=== PATIENT | female | born 1935 | race Caucasian/White ===

== ENCOUNTER 2018-03-01 15:07 | Observation (INO) ==
[2018-03-01] MEDS ORDERED: Sodium Chlor 0.9% Inj 500 ML IV.SIG ONE (15:35)
--- NOTE | 2018-03-01 15:38 | ED ---
HPI General Chief complaint: Abdominal Pain Stated complaint: Weakness Time Seen by Provider: 03/01/18 15:17 Source: patient, EMS and RN notes reviewed Mode of arrival: EMS History of Present Illness HPI narrative: 82yF presenting with diarrhea and generalized weakness. The patient states that this morning she started having diffuse "cramping" abdominal pain which is constant and associated with 2 episodes of loose diarrhea. She called EMS because "I just didn't feel well" and reports generalized weakness and fatigue. Denies fever or chills, chest pain, palpitations, cough, dyspnea, nausea or vomiting, or black/ tarry/ bloody stools. No known history of arrhythmia. Related Data Home Medications Medication Instructions Recorded Confirmed atenolol 25 mg PO DAILY 03/01/18 03/01/18 atorvastatin 20 mg PO DAILY 03/01/18 03/01/18 lorazepam 0.5 mg PO PRN 03/01/18 03/01/18 Allergies Allergy/AdvReac Type Severity Reaction Status Date / Time No Known Allergies Allergy Unverified 03/01/18 15:25 Review of Systems ROS: all other systems reviewed are negative Constitutional Denies fever(s) Cardiovascular Denies chest pain Respiratory Denies cough Gastrointestinal Reports abdominal pain and Reports loose stools Genitourinary Denies dysuria Musculoskeletal Denies back pain Neurologic Denies confusion Psychiatric Denies confusion PMFSH History History Provided By: Patient Medical History Medical History Breast CA (Acute) HBP (high blood pressure) (Acute) High cholesterol (Acute) Surgical History Surgical History Hx of breast biopsy (Acute) Social History Social History Substance History: No History of Abuse Second Hand Smoke Exposure: No Smoking Status: Never smoker How Often Do You Have a Drink Containing Alcohol: Never Recent Travel in [facility] within the Last 8 Weeks: No Recent Out of Country Travel within the Last 8 Weeks: No Immunization History Tetanus Immunization: >5 Years Hx Influenza Vaccine This Season: Yes Exam Const General: healthy appearing and no acute distress HENMT Head: normocephalic and atraumatic Face and sinus: normal facial exam Eyes General: appearance normal, both eyes and all related structures Pupils: PERRL Chest Chest: normal inspection of the chest Resp Effort & Inspection: normal respiratory effort Auscultation: no rhonchi and no wheezes Cardio Other: Irregularly irregular GI Other: Soft, non-distended, minimal LLQ/ RLQ tenderness, no guarding or rebound Skin General: no rashes or lesions noted Neuro General: alert, awake, oriented x3 and no focal motor deficits Psych Affect: normal affect Course Initial Documented Vital Signs Temperature 97.7 F 03/01/18 15:26 Pulse Rate 78 03/01/18 15:26 Respiratory Rate 18 03/01/18 15:26 Blood Pressure 109/60 03/01/18 15:26 Pulse Oximetry 97 03/01/18 15:26 Last Documented Vital Signs Temperature 97.7 F 03/01/18 15:26 Pulse Rate 70 03/01/18 17:12 Respiratory Rate 17 03/01/18 17:12 Blood Pressure 111/63 03/01/18 17:12 Pulse Oximetry 99 03/01/18 17:[address] [facility] Narrative Medical decision making narrative: Assessment: 82yF presenting with new onset A fib, generalized weakness, and diarrhea Plan: EKG and monitor Labs, including trop, mag, TSH CXR CT abd/pelvis Addendum: Patient's workup shows minimally elevated T4, lytes normal, trop negative, CT scans show no acute pathology. This patient cannot go home as she has new-onset atrial fibrillation; she will need cardiac monitoring, further workup, and potentially anticoagulation. Case discussed with Dr. Carlson, who agrees with obs level of care. Differential Diagnosis Differential Diagnosis: Differential diagnosis includes, but is not limited to: atrial fibrillation, dehydration, electrolyte abnormality, thyroid disease, colitis, diverticulitis Medical Records Medical records reviewed: Yes I reviewed the patient's medical records. Lab Data Lab results reviewed: Yes I reviewed the patient's lab results. Result diagrams: 03/01/18 15:45 03/01/18 15:45 Lab Results 03/01/18 03/01/18 03/01/18 Range/Units 15:45 15:45 16:11 WBC 7.7 (4.0-11.0) th/mm3 RBC 3.97 L (4.00-5.30) mil/mm3 Hgb 12.0 (11.6-15.3) gm/dL Hct 36.2 (35.0-46.0) % MCV 91.3 (80.0-100.0) fL MCH 30.2 (27.0-34.0) pg MCHC 33.1 (32.0-36.0) % RDW 13.8 (11.6-17.2) % Plt Count 286 (150-450) th/mm3 MPV 8.1 (7.0-11.0) fL Neut % (Auto) 65.8 (16.0-70.0) % Lymph % (Auto) 22.7 (9.0-44.0) % Daniels % (Auto) 9.4 H (0.0-8.0) % Eos % (Auto) 1.6 (0.0-4.0) % Baso % (Auto) 0.5 (0.0-2.0) % Neut # (Auto) 5.1 (1.8-7.7) th/mm3 Lymph # (Auto) 1.8 (1.0-4.8) th/mm3 Daniels # (Auto) 0.7 (0.0-0.9) th/mm3 Eos # (Auto) 0.1 (0.0-0.4) th/mm3 Baso # (Auto) 0.0 (0.0-0.2) th/mm3 WBC Differential . Differential Comment Auto diff final PT (9.8-11.6) sec INR Ratio APTT (24.3-30.1) sec Sodium 144 (136-145) meq/L Potassium 4.0 (3.5-5.1) meq/L Chloride 110 H (98-107) meq/L Carbon Dioxide 24.9 (21.0-32.0) meq/L Anion Gap 9 (5-15) meq/L BUN 13 (7-18) mg/dL Creatinine 0.79 (0.50-1.00) mg/dL Estimated GFR 69 L (>89) mL/min Random Glucose 74 (74-106) mg/dL Calcium 8.4 L (8.5-10.1) mg/dL Magnesium 1.9 (1.5-2.5) mg/dL Total Bilirubin 0.5 (0.2-1.0) mg/dL AST 26 (15-37) U/L ALT 16 (10-53) U/L Alkaline Phosphatase 74 (45-117) U/L Troponin I Less than 0.02 L Less than 0.02 L (0.02-0.05) ng/mL Total Protein 6.6 (6.4-8.2) g/dL Albumin 3.0 L (3.4-5.0) g/dL Lipase 141 (73-393) U/L TSH 0.012 L (0.358-3.740) uIU/mL Free T4 1.53 H (0.76-1.46) ng/dL 03/01/18 03/01/18 Range/Units 16:11 16:20 WBC (4.0-11.0) th/mm3 RBC (4.00-5.30) mil/mm3 Hgb (11.6-15.3) gm/dL Hct (35.0-46.0) % MCV (80.0-100.0) fL MCH (27.0-34.0) pg MCHC (32.0-36.0) % RDW (11.6-17.2) % Plt Count (150-450) th/mm3 MPV (7.0-11.0) fL Neut % (Auto) (16.0-70.0) % Lymph % (Auto) (9.0-44.0) % Daniels % (Auto) (0.0-8.0) % Eos % (Auto) (0.0-4.0) % Baso % (Auto) (0.0-2.0) % Neut # (Auto) (1.8-7.7) th/mm3 Lymph # (Auto) (1.0-4.8) th/mm3 Daniels # (Auto) (0.0-0.9) th/mm3 Eos # (Auto) (0.0-0.4) th/mm3 Baso # (Auto) (0.0-0.2) th/mm3 WBC Differential Differential Comment PT 10.6 (9.8-11.6) sec INR 1.0 Ratio APTT 22.6 L (24.3-30.1) sec Sodium (136-145) meq/L Potassium (3.5-5.1) meq/L Chloride (98-107) meq/L Carbon Dioxide (21.0-32.0) meq/L Anion Gap (5-15) meq/L BUN (7-18) mg/dL Creatinine (0.50-1.00) mg/dL Estimated GFR (>89) mL/min Random Glucose (74-106) mg/dL Calcium (8.5-10.1) mg/dL Magnesium (1.5-2.5) mg/dL Total Bilirubin (0.2-1.0) mg/dL AST (15-37) U/L ALT (10-53) U/L Alkaline Phosphatase (45-117) U/L Troponin I (0.02-0.05) ng/mL Total Protein (6.4-8.2) g/dL Albumin (3.4-5.0) g/dL Lipase (73-393) U/L TSH (0.358-3.740) uIU/mL Free T4 Cancelled (0.76-1.46) ng/dL Imaging Data Attestation: I personally reviewed and interpreted this imaging study as follows : My impression: Airway midline. No focal infiltrates. No pneumothorax. No pleural effusion. Cardiac and mediastinal silhouettes within normal limits. Radiologist's impression: Abdomen/Pelvis CT 03/01/18 15:35 CONCLUSION: 1. No acute abnormality to explain the patient's pain. 2. 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 3. Diverticulosis of the duodenum and sigmoid colon without acute abnormality. 4. Long-term stable 2.9 cm left adnexal cystic lesion. Likely ovarian in origin. Chest X-Ray 03/01/18 15:35 CONCLUSION: 2 nodular areas of parenchymal consolidation involving the right lung. Consider CT the thorax to further assess. At this point infiltrates versus mass. Chest CT 03/01/18 16:28 CONCLUSION: 1. Distal airway disease and clustered nodularity in the right upper lobe posteriorly, probably chronic inflammatory changes. A focal area of atypical mycobacterial disease could give this appearance. There is also some nodularity and subsegmental airspace disease in the right middle lobe. 2. No effusions or adenopathy. 3. Moderate coronary calcifications. ECG Data Attestation: I personally reviewed and interpreted this ECG as follows: Interpretation: Rate: 60-150 BPM Rhythm: Atrial fibrillation Spring: Normal Intervals: Normal intervals, no blocks, QTc 400 ms Q waves: III T waves: Inverted in V2, V3 ST segments: No elevations or depressions Impression: Rate-controlled atrial fibrillation which is new when compared to EKG from 05/14/2014. Discharge Plan Physicians Team ED Provider: Radha Evans Primary Care Provider: Wang Mcclain Rxs /Orders / Referrals /Forms Prescriptions: No Action atorvastatin 10 mg Tablet 20 mg PO DAILY RF: 0 atenolol 25 mg Tablet 25 mg PO DAILY RF: 0 lorazepam 0.5 mg Tablet 0.5 mg PO PRN RF: 0 Status ED Status: With Doctor
[2018-03-01 15:57] LABS: Baso % (Auto) 0.5 % (0.0-2.0); Eos # (Auto) 0.1 th/mm3 (0.0-0.4); Eos % (Auto) 1.6 % (0.0-4.0); Hematocrit 36.2 % (35.0-46.0); Lymph # (Auto) 1.8 th/mm3 (1.0-4.8); Lymph % (Auto) 22.7 % (9.0-44.0); Mean Corpuscular HGB Conc 33.1 % (32.0-36.0); Mean Corpuscular Hemoglobin 30.2 pg (27.0-34.0); Mean Corpuscular Volume 91.3 fL (80.0-100.0); Mean Platelet Volume 8.1 fL (7.0-11.0); Mono # (Auto) 0.7 th/mm3 (0.0-0.9); Mono % (Auto) 9.4 % (0.0-8.0); Neut # (Auto) 5.1 th/mm3 (1.8-7.7); Neut % (Auto) 65.8 % (16.0-70.0); Platelet Count 286 th/mm3 (150-450); Red Blood Count 3.97 mil/mm3 (4.00-5.30); Red Cell Distribution Width 13.8 % (11.6-17.2); White Blood Count 7.7 th/mm3 (4.0-11.0)
--- NOTE | 2018-03-01 16:25 | XR ---
EXAM DATE: 03/01/2018 3:47 PM EDT AGE/SEX: 82 years / Female INDICATIONS: Lower chest pain. CLINICAL DATA: This is the patient's initial encounter. Patient reports that signs and symptoms have been present for 1 day and indicates a pain score of 1/10. MEDICAL/SURGICAL HISTORY: None. None. COMPARISON: [facility], CT CHEST W/O CONTRAST, 02/07/2016. . FINDINGS: A single AP view of the chest demonstrates 2 subtle areas of nodularity. One is within the medial rig ht base and the second laterally within the right midlung. The cardiomediastinal contours are unremar kable. Osseous structures are intact. CONCLUSION: 2 nodular areas of parenchymal consolidation involving the right lung. Consider CT the thorax to furt her assess. At this point infiltrates versus mass. Electronically signed by: Josiah Lopez MD 03/01/2018 4:23 PM EDT
[2018-03-01 16:36] LABS: Alanine Aminotransferase 16 U/L (10-53); Alkaline Phosphatase 74 U/L (45-117); Thyroid Stimulating Hormone 0.012 uIU/mL (0.358-3.740); Total Protein 6.6 g/dL (6.4-8.2)
[2018-03-01 16:39] LABS: Anion Gap 9 meq/L (5-15); Aspartate Aminotransferase 26 U/L (15-37); Blood Urea Nitrogen 13 mg/dL (7-18); Calcium 8.4 mg/dL (8.5-10.1); Carbon Dioxide 24.9 meq/L (21.0-32.0); Chloride 110 meq/L (98-107); Glomerular Filtration Rate 69 mL/min (>89); Glucose,Random 74 mg/dL (74-106); Lipase 141 U/L (73-393); Magnesium 1.9 mg/dL (1.5-2.5); Sodium 144 meq/L (136-145)
[2018-03-01 16:46] LABS: Activated Partial Thrombo Time 22.6 sec (24.3-30.1); Prothrombin Time 10.6 sec (9.8-11.6)
[2018-03-01 17:07] LABS: Free T4 (Free Thyroxine) 1.53 ng/dL (0.76-1.46)
--- NOTE | 2018-03-01 17:46 | CT ---
EXAM DATE: 03/01/2018 5:38 PM EDT AGE/SEX: 82 years / Female INDICATIONS: Abdominal pain, diarrhea. CLINICAL DATA: This is the patient's initial encounter. Patient reports that signs and symptoms have been present for 1 day and indicates a pain score of 3/10. MEDICAL/SURGICAL HISTORY: Hypertension. Breast cancer. None. ORAL CONTRAST: No oral contrast ingested. RADIATION DOSE: 6.00 CTDI (mGy) ; Combined studies COMPARISON: [facility], CT ABDOMEN AND PELVIS W AND W/O CONTRAST, 08/07/2015. . TECHNIQUE: Multiple contiguous axial images were obtained through the abdomen and pelvis following b olus infusion of 97 ml Omnipaque 350 (iohexol) nonionic water-soluble contrast as a cumulative dose for multiple exams. No oral contrast ingested. Using automated exposure control and adjustment of t he mA and/or kV according to patient size, radiation dose was kept as low as reasonably achievable to obtain optimal diagnostic quality images. DICOM format image data is available electronically for r eview and comparison. FINDINGS: Lower Lungs: See the CT of the thorax dictated separately.. Liver: The liver has a homogeneous density. Stable 9 mm low-density lesion involving the subcapsular aspects of segment 6. This is long-term stable and likely relates to a cyst or hemangioma. There is n o dilation of the biliary tree. Gallbladder is unremarkable. Spleen: Homogeneous density without enlargement. Pancreas: Unremarkable without mass or calcification. Kidneys: Normal in size and shape. No evidence of mass or hydronephrosis. Adrenal Glands: Unremarkable. Aorta: The aorta and proximal iliac vessels are grossly unremarkable without aneurysmal dilation. Bowel/Mesentery: 2 large duodenal diverticula are seen arising from the second and third portions of the duodenum. The largest arises from the third portion and measures 5 cm. These contain fluid. They are unchanged from the prior study. Scattered diverticula involving the sigmoid colon. No acute infla mmation. The bowel loops are grossly unremarkable. The cecum and sigmoid colon have a normal configur ation. Abdominal Wall: Intact. Retroperitoneum: No evidence of adenopathy in the retrocrural, para-aortic, or deep pelvic regions. Bladder: Contours are smooth. Reproductive Organs: There is a 2.9 cm cystic lesion within the lateral aspects the left hemipelvis. This is unchanged from the prior study. Uterus lies within the midline. No free fluid.. Inguinal: The inguinal region is unremarkable without evidence of adenopathy. Bony Structures: A scoliotic and degenerative spine. CONCLUSION: 1. No acute abnormality to explain the patient's pain. 2. 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 3. Diverticulosis of the duodenum and sigmoid colon without acute abnormality. 4. Long-term stable 2.9 cm left adnexal cystic lesion. Likely ovarian in origin. Electronically signed by: Josiah Lopez MD 03/01/2018 5:45 PM EDT
--- NOTE | 2018-03-01 17:49 | CT ---
EXAM DATE: 03/01/2018 5:38 PM EDT AGE/SEX: 82 years / Female INDICATIONS: Chest pain. CLINICAL DATA: This is the patient's initial encounter. Patient reports that signs and symptoms have been present for 1 day and indicates a pain score of 4/10. MEDICAL/SURGICAL HISTORY: Hypertension. Breast cancer. None. RADIATION DOSE: 6.00 CTDI (mGy) ; Combined studies COMPARISON: No prior exams available for comparison. TECHNIQUE: Multiple contiguous axial images were obtained through the chest during bolus infusion of 97 ml Omnipaque 350 (iohexol) nonionic water-soluble contrast as a cumulative dose for multiple exa ms. Images were obtained in suspended respiration using multiple row detector helical technique. U sing automated exposure control and adjustment of the mA and/or kV according to patient size, radiati on dose was kept as low as reasonably achievable to obtain optimal diagnostic quality images. DICOM format image data is available electronically for review and comparison. FINDINGS: There is some distal airway disease in cluster nodularity posterior segment of the right upper lobe w hich is probably inflammatory or post minimal subsegmental consolidation in the right middle lobe and dependent opacity in both lungs. There is no pleural or pericardial effusion. There are moderate coronary artery calcifications. No acute findings in the upper abdomen. Diffuse fatty liver. Small hepatic cyst. Spleen, adrenals, ki dneys and pancreas unremarkable. No calcified gallstones. Degenerative changes in the spine. CONCLUSION: 1. 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 A focal area of atypical mycobacterial disease could give this appearance. There is also some nodularity and subsegmental airspace disease in the right middle lobe. 2. No effusions or adenopathy. 3. Moderate coronary calcifications. Electronically signed by: Jones Schuler MD 03/01/2018 5:48 PM EDT
[2018-03-01] MEDS ORDERED: ALPRAZolam 0.25 MG Tablet PO ONE (18:26)
--- NOTE | 2018-03-01 21:17 | P.HP ---
History of Present Illness Service: [facility] adult med Primary Care Physician: Wang Mcclain MD Chief Complaint: diarrhea, weakness History of Present Illness: 82 y.o. WF with hx of HTN, hypercholesterolemia presents with diarrhea and generalized weakness. The patient states that this morning she started having diffuse "cramping" abdominal pain which is constant and associated with 2 episodes of loose diarrhea. She called EMS because "I just didn't feel well" and reports generalized weakness and fatigue. She reports that she generally feels quite well and stays active so today's weakness was unusual for her. Denies fever or chills, chest pain, palpitations, cough, dyspnea, nausea or vomiting, or black/ tarry/ bloody stools. No known history of arrhythmia. 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 Her diarrhea has resolved and she feels better presently although still somewhat weak. On ER evaluation she was noted to have slightly suppressed TSH and atrial fibrillation with controlled rate. - Diagnosis (1) Atrial fibrillation, new onset (2) HTN (hypertension) (3) Hypothyroidism (4) Hyperlipidemia Review of Systems Constitutional: Reports fatigue, Reports lack of energy, Reports weakness Ears, Nose, Mouth, and Throat: Denies abnormal hearing, Denies bleeding gums, Denies bad breath, Denies change in voice, Denies dental pain, Denies difficulty swallowing, Denies dizziness, Denies dry mouth, Denies ear discharge , Denies ear pain, Denies facial pain, Denies headache(s), Denies hearing loss, Denies hoarseness, Denies lip swelling, Denies nosebleed, Denies mouth lesions, Denies mouth pain, Denies nasal congestion, Denies nasal discharge, Denies nasal obstruction, Denies nasal trauma, Denies neck lump, Denies neck pain, Denies nose pain, Denies pain with swallowing, Denies poor balance, Denies post nasal drip, Denies ringing in the ears, Denies sinus pain, Denies sinus pressure , Denies sore throat, Denies throat swelling, Denies tongue swelling, Denies other Cardiovascular: Denies chest pain, Denies chest pain at rest, Denies chest pain with activity, Denies fainting, Denies fast heart rate, Denies foot swelling, Denies generalized swelling, Denies irregular heart rhythm, Denies leg pain with activity, Denies leg sores, Denies leg swelling, Denies lightheadedness, Denies radiating jaw, neck or arm pain, Denies rapid, pounding, or irregular heartbeat, Denies shortness of breath, Denies shortness of breath with activity , Denies shortness of breath when lying down, Denies shortness of breath causing sudden awakening, Denies slow heart rate, Denies other Respiratory: Denies change in phlegm color, Denies chest congestion, Denies cough, Denies coughing up blood, Denies excessive phlegm production, Denies pain on inspiration, Denies pain with cough, Denies shortness of breath, Denies shortness of breath with activity, Denies snoring, Denies stridor, Denies wheezing, Denies other Gastrointestinal: Reports abdominal pain, Reports change in bowel habits, Reports loose stools, Denies belching, Denies black, tarry stools, Denies bloating, Denies bright, red blood in stools, Denies constant urge to pass stool , Denies change in stools, Denies coffee ground vomit, Denies constipation, Denies cramping, Denies difficulty swallowing, Denies excessive passing of gas, Denies feeling full early, Denies heartburn, Denies incontinent of stools, Denies nausea, Denies pain with swallowing, Denies vomiting, Denies vomiting blood, Denies other Musculoskeletal: Reports muscle weakness Neurologic: Reports confusion, Reports weakness Psychiatric: Reports anxiety PMFSH - History History Provided By: Patient - Medical History Medical History: Medical History (Last Updated 03/01/18 @ 21:09 by Deuce Carlson MD, PhD) High cholesterol (Acute) HBP (high blood pressure) (Acute) Breast CA CKD (chronic kidney disease) stage 3, GFR 30-59 ml/min Lumbar degenerative disc disease Major depression - Surgical History Surgical History: Surgical History (Last Updated 03/01/18 @ 21:10 by Deuce Carlson MD, PhD) H/O mastectomy Hx of breast biopsy - Tobacco History Second Hand Smoke Exposure: No Smoking Status: Former smoker Years Smoked: 5 Number of Pack Years (if former smoker): 3 - Alcohol History How Often Do You Have a Drink Containing Alcohol: Never - Substance Use History Substance History: No History of Abuse - Travel History Recent Travel in the [place] Within the Last 8 Weeks: No Recent Travel Out of the Country Within the Last 8 Weeks: No - Immunization History Tetanus Immunization: >5 Years Hx Influenza Vaccine This Season: Yes Medications and Allergies Active Medications: Active Medications Apixaban (Eliquis) 2.5 mg PO BID [facility] Sodium Chloride (Ns Flush) 2 ml IV.FLUSH UNSCH PRN PRN Reason: FLUSH AFTER USING IV ACCESS Last Admin: 03/01/18 15:47 Dose: 2 ml Sodium Chloride (Ns Flush) 2 ml IV.FLUSH PRN PRN PRN Reason: FLUSH AFTER USING IV ACCESS Sodium Chloride (Ns Flush) 2 ml IV.FLUSH BID [facility]ANO Allergies Allergy/AdvReac Type Severity Reaction Status Date / Time No Known Allergies Allergy Unverified 03/01/18 15:25 Home Medications Medication Instructions Recorded Confirmed Type aspirin [Adult Low Dose Aspirin] 81 mg PO DAILY 03/01/18 03/01/18 History atenolol 25 mg PO DAILY 03/01/18 03/01/18 History atorvastatin 20 mg PO DAILY 03/01/18 03/01/18 History donepezil 5 mg PO DAILY 03/01/18 03/01/18 History hydrocodone-acetaminophen 1 tab PO Q8HR PRN 03/01/18 03/01/18 History levothyroxine 75 mcg PO DAILY 03/01/18 03/01/18 History lorazepam 0.5 mg PO PRN 03/01/18 03/01/18 History mirtazapine 15 mg PO HS 03/01/18 03/01/18 History omeprazole magnesium [Acid Studio Technician Video Operator 20 mg PO DAILY 03/01/18 03/01/18 History (omeprazole)] Exam Vital signs: Vital Signs 03/01/18 15:26 03/01/18 15:35 03/01/18 17:12 Temperature 97.7 F Pulse Rate 78 78 70 Respiratory Rate 18 17 Blood Pressure 109/60 111/63 Pulse Oximetry 97 98 99 03/01/18 19:35 Temperature Pulse Rate 75 Respiratory Rate 20 Blood Pressure 144/63 H Pulse Oximetry 100 Intake & Output 03/01/18 03/01/18 03/02/18 06:59 18:59 06:59 Intake Total 500 / 500 Balance 500 / 500 Weight 50.802 kg Intake: IV 500 / 500 NS Inj 500 ML @ Wide Open IV. 500 / 500 SIG BOLUS ONE Rx#:[id number] Narrative: GENERAL: elderly, NAD, slight confusion re: which hospital, but o/w a/o x3 SKIN: Warm and dry. few purpuric lesions on forearms HEAD: Atraumatic. Normocephalic. EYES: Pupils equal and round. No scleral icterus. No injection or drainage. ENT: No nasal bleeding or discharge. Mucous membranes pink and moist. NECK: Trachea midline. No JVD. CARDIOVASCULAR: irreg, irreg rate in 80s, no significant murmur or rub RESPIRATORY: No accessory muscle use. Clear to auscultation. Breath sounds equal bilaterally. GASTROINTESTINAL: Abdomen soft, nondistended, mild ttp in lower abd, but no g/ r. Hepatic and splenic margins not palpable. MUSCULOSKELETAL: Extremities without clubbing, cyanosis, or edema. No obvious deformities. NEUROLOGICAL: Awake and alert. No obvious cranial nerve deficits. Motor grossly within normal limits. Five out of 5 muscle strength in the arms and legs. Normal speech. PSYCHIATRIC: Appropriate mood and affect; insight and judgment normal. Results - Labs CBC & Chem 7: 03/01/18 15:45 03/01/18 15:45 Labs: Laboratory Results - last 24 hr 03/01/18 03/01/18 03/01/18 15:45 15:45 16:11 WBC 7.7 RBC 3.97 L Hgb 12.0 Hct 36.2 MCV 91.3 MCH 30.2 MCHC 33.1 RDW 13.8 Plt Count 286 MPV 8.1 Neut % (Auto) 65.8 Lymph % (Auto) 22.7 [place] % (Auto) 9.4 H Eos % (Auto) 1.6 Baso % (Auto) 0.5 Neut # (Auto) 5.1 Lymph # (Auto) 1.8 [place] # (Auto) 0.7 Eos # (Auto) 0.1 Baso # (Auto) 0.0 WBC Differential . Differential Comment Auto diff final PT INR APTT Sodium 144 Potassium 4.0 Chloride 110 H Carbon Dioxide 24.9 Anion Gap 9 BUN 13 Creatinine 0.79 Estimated GFR 69 L Random Glucose 74 Calcium 8.4 L Magnesium 1.9 Total Bilirubin 0.5 AST 26 ALT 16 Alkaline Phosphatase 74 Troponin I Less than 0.02 L Less than 0.02 L Total Protein 6.6 Albumin 3.0 L Lipase 141 TSH 0.012 L Free T4 1.53 H 03/01/18 03/01/18 16:11 16:20 WBC RBC Hgb Hct MCV MCH MCHC RDW Plt Count MPV Neut % (Auto) Lymph % (Auto) [place] % (Auto) Eos % (Auto) Baso % (Auto) Neut # (Auto) Lymph # (Auto) [place] # (Auto) Eos # (Auto) Baso # (Auto) WBC Differential Differential Comment PT 10.6 INR 1.0 APTT 22.6 L Sodium Potassium Chloride Carbon Dioxide Anion Gap BUN Creatinine Estimated GFR Random Glucose Calcium Magnesium Total Bilirubin AST ALT Alkaline Phosphatase Troponin I Total Protein Albumin Lipase TSH Free T4 Cancelled - Imaging Impressions Abdomen/Pelvis CT 03/01/18 15:35 CONCLUSION: 1. No acute abnormality to explain the patient's pain. 2. 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 3. Diverticulosis of the duodenum and sigmoid colon without acute abnormality. 4. Long-term stable 2.9 cm left adnexal cystic lesion. Likely ovarian in origin. Chest X-Ray 03/01/18 15:35 CONCLUSION: 2 nodular areas of parenchymal consolidation involving the right lung. Consider CT the thorax to further assess. At this point infiltrates versus mass. Chest CT 03/01/18 16:28 CONCLUSION: 1. Distal airway disease and clustered nodularity in the right upper lobe posteriorly, probably chronic inflammatory changes. A focal area of atypical mycobacterial disease could give this appearance. There is also some nodularity and subsegmental airspace disease in the right middle lobe. 2. No effusions or adenopathy. 3. Moderate coronary calcifications. Caprini VTE Risk Assessment Caprini VTE Risk Assessment: Moderate/High Risk (score >= 2) Caprini Risk Assessment Model: Point Value = 1 Point Value = 2 Point Value = 3 Point Value = 5 Age 41-60 Minor surgery BMI > 25 kg/m2 Swollen legs Varicose veins or History of unexplained or recurrent spontaneous Oral contraceptives or hormone replacement Sepsis (< 1 month) Serious lung disease, including pneumonia (< 1 month) Abnormal pulmonary function Acute myocardial infarction Congestive heart failure (< 1 month) History of inflammatory bowel disease Medical patient at bed rest Age 61-74 Arthroscopic surgery Major open surgery (> 45 min) Laparoscopic surgery (> 45 min) Malignancy Confined to bed (> 72 hours) Immobilizing plaster cast Central venous access Age >= 75 History of VTE Family history of VTE Factor V Leiden Prothrombin [id number] Lupus anticoagulant Anticardiolipin antibodies Elevated serum homocysteine Heparin-induced thrombocytopenia Other congenital or acquired thrombophilia Stroke (< 1 month) Elective arthroplasty Hip, pelvis, or leg fracture Acute spinal cord injury (< 1 month) Prophylaxis Regimen: Total Risk Factor Score Risk Level Prophylaxis Regimen 0-1 Low Early ambulation 2 Moderate Order ONE of the following: *Sequential Compression Device (SCD) *Heparin 5000 units SQ BID 3-4 Higher Order ONE of the following medications: *Heparin 5000 units SQ TID *Enoxaparin/Lovenox 40 mg SQ daily (WT < 150 kg, CrCl > 30 mL/min) *Enoxaparin/Lovenox 30 mg SQ daily (WT < 150 kg, CrCl > 10-29 mL/min) *Enoxaparin/Lovenox 30 mg SQ BID (WT < 150 kg, CrCl > 30 mL/min) AND/OR *Sequential Compression Device (SCD) 5 or more Highest Order ONE of the following medications: *Heparin 5000 units SQ TID (Preferred with Epidurals) *Enoxaparin/Lovenox 40 mg SQ daily (WT < 150 kg, CrCl > 30 mL/min) *Enoxaparin/Lovenox 30 mg SQ daily (WT < 150 kg, CrCl > 10-29 mL/min) *Enoxaparin/Lovenox 30 mg SQ BID (WT < 150 kg, CrCl > 30 mL/min) AND *Sequential Compression Device (SCD) Assessment and Plan - Assessment (1) Atrial fibrillation, new onset Code(s): I48.91 - Unspecified atrial fibrillation Status: Acute Plan: TSH noted. Will decrease levothyroxine, but doubt significant contribution. lytes ok. r/o ischemia, check echo. Start eliquis as CHADS-Vasc2 >2 (2) HTN (hypertension) Code(s): I10 - Essential (primary) hypertension Status: Chronic Plan: chronic. continue meds. Atenolol helps with rate control. (3) Hypothyroidism Code(s): E03.9 - Hypothyroidism, unspecified Status: Chronic Plan: decrease levothyroxine (4) Hyperlipidemia Code(s): E78.5 - Hyperlipidemia, unspecified Status: Chronic Plan: continue rx (2) HTN (hypertension) Qualifiers: Hypertension type: essential hypertension Qualified Code(s): I10 - Essential (primary) hypertension
[2018-03-01] MEDS: LORazepam 0.5 MG Tablet PO PRN (23:06)
[2018-03-01 23:32] LABS: Creatine Kinase 51 U/L (26-192)
[2018-03-02] MEDS ORDERED: Levothyroxine 50 MCG Tablet PO SCH (06:00)
[2018-03-02 07:22] LABS: Creatine Kinase 126 U/L (26-192)
--- NOTE | 2018-03-02 07:42 | P.CONCA ---
<Robb Harry - Last Filed: 03/02/18 07:34> History of Present Illness Primary Care Provider: Wang Mcclain MD Family Provider: Wang Mcclain MD Chief Complaint: diarrhea, weakness History of Present Illness: 82-year-old female with past medical history of HTN, hypothyroidism who presented with abdominal cramping and weakness. The patient has been having lower abdominal discomfort and diarrhea for the past few days which has improved. She is found to have new onset atrial fibrillation yesterday. Heart rate appears mostly controlled overnight. She has been started on Eliquis by the primary team. She denies any recent chest pain, shortness breath, palpitations. She denies any prior history of heart disease or stroke. Review of Systems All other systems reviewed negative except as [facility] - History History Provided By: Patient - Medical History Medical History: Medical History (Last Updated 03/01/18 @ 21:09 by Deuce Carlson MD, PhD) High cholesterol (Acute) HBP (high blood pressure) (Acute) Breast CA CKD (chronic kidney disease) stage 3, GFR 30-59 ml/min Lumbar degenerative disc disease Major depression - Surgical History Surgical History: Surgical History (Last Updated 03/01/18 @ 21:10 by Deuce Carlson MD, PhD) H/O mastectomy Hx of breast biopsy - Tobacco History Second Hand Smoke Exposure: No Tobacco Use In Past 30 Days: No Smoking Status: Former smoker Tobacco Type: Cigarettes Years Smoked: 5 Number of Pack Years (if former smoker): 3 - Alcohol History How Often Do You Have a Drink Containing Alcohol: Monthly or less - Substance Use History Substance History: No History of Abuse - Travel History Recent Travel in the [place] Within the Last 8 Weeks: No Recent Travel Out of the Country Within the Last 8 Weeks: No - Immunization History Tetanus Immunization: >5 Years Hx Influenza Vaccine This Season: Yes Medications and Allergies Allergies Allergy/AdvReac Type Severity Reaction Status Date / Time No Known Allergies Allergy Unverified 03/01/18 15:25 Home Medications Medication Instructions Recorded Confirmed Type aspirin [Adult Low Dose Aspirin] 81 mg PO DAILY 03/01/18 03/01/18 History atenolol 25 mg PO DAILY 03/01/18 03/01/18 History atorvastatin 20 mg PO DAILY 03/01/18 03/01/18 History donepezil 5 mg PO DAILY 03/01/18 03/01/18 History hydrocodone-acetaminophen 1 tab PO Q8HR PRN 03/01/18 03/01/18 History levothyroxine 75 mcg PO DAILY 03/01/18 03/01/18 History lorazepam 0.5 mg PO PRN 03/01/18 03/01/18 History mirtazapine 15 mg PO HS 03/01/18 03/01/18 History omeprazole magnesium [Acid Ethylbenzene Converter Helper 20 mg PO DAILY 03/01/18 03/01/18 History (omeprazole)] Active Medications: Active Medications Apixaban (Eliquis) 2.5 mg PO BID [facility] Last Admin: 03/01/18 23:01 Dose: 2.5 mg Atorvastatin Calcium (Lipitor) 10 mg PO DAILY [facility] Levothyroxine Sodium (Synthroid) 50 mcg PO DAILY@0600 [facility] Last Admin: 03/02/18 05:54 Dose: 50 mcg Lorazepam (Ativan) 0.5 mg PO Q8H PRN PRN Reason: ANXIETY Last Admin: 03/01/18 23:06 Dose: 0.5 mg Metoprolol Tartrate (Lopressor) 25 mg PO BID [facility] Pantoprazole Sodium (Protonix) 40 mg PO DAILY [facility] Sodium Chloride (Ns Flush) 2 ml IV.FLUSH UNSCH PRN PRN Reason: FLUSH AFTER USING IV ACCESS Sodium Chloride (Ns Flush) 2 ml IV.FLUSH BID [facility] Last Admin: 03/01/18 23:00 Dose: 2 ml Exam Vital signs: Vital Signs 03/01/18 15:26 03/01/18 15:35 03/01/18 17:12 Temperature 97.7 F Pulse Rate 78 78 70 Respiratory Rate 18 17 Blood Pressure 109/60 111/63 Pulse Oximetry 97 98 99 03/01/18 19:35 03/01/18 20:00 03/02/18 00:00 Temperature 98.4 F 98.2 F Pulse Rate 75 76 69 Respiratory Rate 20 17 17 Blood Pressure 144/63 H 130/94 H 125/61 Pulse Oximetry 100 94 L 97 03/02/18 03:20 03/02/18 04:00 Temperature 98.1 F Pulse Rate 74 Respiratory Rate 18 17 Blood Pressure 123/70 Pulse Oximetry 93 L Intake & Output 03/01/18 03/02/18 03/02/18 18:59 06:59 18:59 Intake Total 500 / 500 Balance 500 / 500 Weight 112 lb 108 lb 7.479 oz Intake: IV 500 / 500 NS Inj 500 ML @ Wide Open IV. 500 / 500 SIG BOLUS ONE Rx#:[id number] Other: # Voids 3 Date of Last Bowel Movement 03/01/18 Narrative: GENERAL: Well-developed well-nourished. In no acute distress. NECK: No carotid bruits. No JVD. CARDIOVASCULAR: Irregular rate and rhythm. No murmur appreciated. RESPIRATORY: No accessory muscle use. Clear to auscultation. Breath sounds equal bilaterally. MUSCULOSKELETAL: No clubbing or cyanosis. No edema. NEUROLOGICAL: Awake and alert. Normal speech. Results 03/01/18 15:45 03/01/18 15:45 Cardiac Enzymes 03/01/18 03/01/18 03/01/18 Range/Units 15:45 16:11 22:34 AST 26 (15-37) U/L Troponin I Less than 0.02 L Less than 0.02 L Less than 0.02 L (0.02-0.05) ng/mL 03/02/18 Range/Units 06:05 AST (15-37) U/L Troponin I Less than 0.02 L (0.02-0.05) ng/mL Coagulation 03/01/18 Range/Units 16:20 PT 10.6 (9.8-11.6) sec APTT 22.6 L (24.3-30.1) sec CBC 03/01/18 Range/Units 15:45 WBC 7.7 (4.0-11.0) th/mm3 RBC 3.97 L (4.00-5.30) mil/mm3 Hgb 12.0 (11.6-15.3) gm/dL Hct 36.2 (35.0-46.0) % Plt Count 286 (150-450) th/mm3 Neut # (Auto) 5.1 (1.8-7.7) th/mm3 Lymph # (Auto) 1.8 (1.0-4.8) th/mm3 [place] # (Auto) 0.7 (0.0-0.9) th/mm3 Eos # (Auto) 0.1 (0.0-0.4) th/mm3 Baso # (Auto) 0.0 (0.0-0.2) th/mm3 Comprehensive Metabolic Panel 03/01/18 Range/Units 15:45 Sodium 144 (136-145) meq/L Potassium 4.0 (3.5-5.1) meq/L Chloride 110 H (98-107) meq/L Carbon Dioxide 24.9 (21.0-32.0) meq/L BUN 13 (7-18) mg/dL Creatinine 0.79 (0.50-1.00) mg/dL Calcium 8.4 L (8.5-10.1) mg/dL AST 26 (15-37) U/L ALT 16 (10-53) U/L Alkaline Phosphatase 74 (45-117) U/L Total Protein 6.6 (6.4-8.2) g/dL Albumin 3.0 L (3.4-5.0) g/dL Intake and Output 03/01/18 03/02/18 03/02/18 22:59 06:59 14:59 Intake Total 500 / 500 Balance 500 / 500 Intake: IV 500 / 500 NS Inj 500 ML @ Wide Open IV. 500 / 500 SIG BOLUS ONE Rx#:[id number] Other: # Voids 3 Date of Last Bowel Movement 03/01/18 Weight 112 lb 108 lb 7.479 oz Assessment and Plan - Plan 82-year-old female with past medical history of HTN, hypothyroidism who presented with abdominal cramping and weakness. The patient has been having lower abdominal discomfort and diarrhea for the past few days which has improved. She is found to have new onset atrial fibrillation. New onset atrial fibrillation: Change atenolol to metoprolol 25 mg for rate control, titrate up if needed. Chadsvasc 4 for age, hypertension, gender, patient started on Eliquis by primary team, discussed risks/benefits of anticoagulation and patient is agreeable. Echocardiogram ordered. Discharge planning from a cardiology perspective. Discussed Condition With: Patient, Dr. Anderson <Francis Anderson - Last Filed: 03/02/18 08:35> History of Present Illness Primary Care Provider: Wang Mcclain MD Family Provider: Wang Mcclain MD [facility] - Medical History Medical History: Medical History (Last Updated 03/01/18 @ 21:09 by Deuce Carlson MD, PhD) High cholesterol (Acute) HBP (high blood pressure) (Acute) Breast CA CKD (chronic kidney disease) stage 3, GFR 30-59 ml/min Lumbar degenerative disc disease Major depression - Surgical History Surgical History: Surgical History (Last Updated 03/01/18 @ 21:10 by Deuce Carlson MD, PhD) H/O mastectomy Hx of breast biopsy Medications and Allergies Active Medications: Active Medications Apixaban (Eliquis) 2.5 mg PO BID [facility] Last Admin: 03/01/18 23:01 Dose: 2.5 mg Atorvastatin Calcium (Lipitor) 10 mg PO DAILY [facility] Levothyroxine Sodium (Synthroid) 50 mcg PO DAILY@0600 [facility] Last Admin: 03/02/18 05:54 Dose: 50 mcg Lorazepam (Ativan) 0.5 mg PO Q8H PRN PRN Reason: ANXIETY Last Admin: 03/01/18 23:06 Dose: 0.5 mg Metoprolol Tartrate (Lopressor) 25 mg PO BID [facility] Pantoprazole Sodium (Protonix) 40 mg PO DAILY [facility] Sodium Chloride (Ns Flush) 2 ml IV.FLUSH UNSCH PRN PRN Reason: FLUSH AFTER USING IV ACCESS Sodium Chloride (Ns Flush) 2 ml IV.FLUSH BID [facility] Last Admin: 03/01/18 23:00 Dose: 2 ml Exam Vital signs: Vital Signs 03/01/18 15:26 03/01/18 15:35 03/01/18 17:12 Temperature 97.7 F Pulse Rate 78 78 70 Respiratory Rate 18 17 Blood Pressure 109/60 111/63 Pulse Oximetry 97 98 99 03/01/18 19:35 03/01/18 20:00 03/02/18 00:00 Temperature 98.4 F 98.2 F Pulse Rate 75 76 69 Respiratory Rate 20 17 17 Blood Pressure 144/63 H 130/94 H 125/61 Pulse Oximetry 100 94 L 97 03/02/18 03:20 03/02/18 04:00 03/02/18 07:49 Temperature 98.1 F 97.5 F L Pulse Rate 74 73 Respiratory Rate 18 17 18 Blood Pressure 123/70 121/58 L Pulse Oximetry 93 L 96 Intake & Output 03/01/18 03/02/18 03/02/18 18:59 06:59 18:59 Intake Total 500 / 500 Balance 500 / 500 Weight 50.802 kg 49.2 kg Intake: IV 500 / 500 NS Inj 500 ML @ Wide Open IV. 500 / 500 SIG BOLUS ONE Rx#:[id number] Other: # Voids 3 Date of Last Bowel Movement 03/01/18 Results 03/01/18 15:45 03/01/18 15:45 Cardiac Enzymes 03/01/18 03/01/18 03/01/18 Range/Units 15:45 16:11 22:34 AST 26 (15-37) U/L Troponin I Less than 0.02 L Less than 0.02 L Less than 0.02 L (0.02-0.05) ng/mL 03/02/18 Range/Units 06:05 AST (15-37) U/L Troponin I Less than 0.02 L (0.02-0.05) ng/mL Coagulation 03/01/18 Range/Units 16:20 PT 10.6 (9.8-11.6) sec APTT 22.6 L (24.3-30.1) sec CBC 03/01/18 Range/Units 15:45 WBC 7.7 (4.0-11.0) th/mm3 RBC 3.97 L (4.00-5.30) mil/mm3 Hgb 12.0 (11.6-15.3) gm/dL Hct 36.2 (35.0-46.0) % Plt Count 286 (150-450) th/mm3 Neut # (Auto) 5.1 (1.8-7.7) th/mm3 Lymph # (Auto) 1.8 (1.0-4.8) th/mm3 [place] # (Auto) 0.7 (0.0-0.9) th/mm3 Eos # (Auto) 0.1 (0.0-0.4) th/mm3 Baso # (Auto) 0.0 (0.0-0.2) th/mm3 Comprehensive Metabolic Panel 03/01/18 Range/Units 15:45 Sodium 144 (136-145) meq/L Potassium 4.0 (3.5-5.1) meq/L Chloride 110 H (98-107) meq/L Carbon Dioxide 24.9 (21.0-32.0) meq/L BUN 13 (7-18) mg/dL Creatinine 0.79 (0.50-1.00) mg/dL Calcium 8.4 L (8.5-10.1) mg/dL AST 26 (15-37) U/L ALT 16 (10-53) U/L Alkaline Phosphatase 74 (45-117) U/L Total Protein 6.6 (6.4-8.2) g/dL Albumin 3.0 L (3.4-5.0) g/dL Intake and Output 03/01/18 03/02/18 03/02/18 22:59 06:59 14:59 Intake Total 500 / 500 Balance 500 / 500 Intake: IV 500 / 500 NS Inj 500 ML @ Wide Open IV. 500 / 500 SIG BOLUS ONE Rx#:[id number] Other: # Voids 3 Date of Last Bowel Movement 03/01/18 Weight 50.802 kg 49.2 kg Assessment and Plan - Attending Attestation agree with above [place] home
--- NOTE | 2018-03-02 08:47 | P.PNIM ---
Subjective Interval history: Pt complains of being tired this morning but states that she slept well She had one episode of diarrhea this morning Pt in A. fib on telemetry but rate controlled currently. Denies any chest pain, palpitations, or SOB Physical Exam Vital signs: Vital Signs 03/01/18 15:26 03/01/18 15:35 03/01/18 17:12 Temperature 97.7 F Pulse Rate 78 78 70 Respiratory Rate 18 17 Blood Pressure 109/60 111/63 Pulse Oximetry 97 98 99 03/01/18 19:35 03/01/18 20:00 03/02/18 00:00 Temperature 98.4 F 98.2 F Pulse Rate 75 76 69 Respiratory Rate 20 17 17 Blood Pressure 144/63 H 130/94 H 125/61 Pulse Oximetry 100 94 L 97 03/02/18 03:20 03/02/18 04:00 03/02/18 07:49 Temperature 98.1 F 97.5 F L Pulse Rate 74 73 Respiratory Rate 18 17 18 Blood Pressure 123/70 121/58 L Pulse Oximetry 93 L 96 Intake & Output 03/01/18 03/02/18 03/02/18 18:59 06:59 18:59 Intake Total 500 / 500 Balance 500 / 500 Weight 50.802 kg 49.2 kg Intake: IV 500 / 500 NS Inj 500 ML @ Wide Open IV. 500 / 500 SIG BOLUS ONE Rx#:[id number] Other: # Voids 3 Date of Last Bowel Movement 03/01/18 Narrative: General: NAD, AAOx3 Chest: CTA Cardiac: Irregular, rate controlled Abd: +BS, soft ND/NT Ext: No edema Results - Labs CBC & Chem 7: 03/01/18 15:45 03/01/18 15:45 Laboratory Results - last 24 hr 03/01/18 03/01/18 03/01/18 15:45 15:45 16:11 WBC 7.7 RBC 3.97 L Hgb 12.0 Hct 36.2 MCV 91.3 MCH 30.2 MCHC 33.1 RDW 13.8 Plt Count 286 MPV 8.1 Neut % (Auto) 65.8 Lymph % (Auto) 22.7 [place] % (Auto) 9.4 H Eos % (Auto) 1.6 Baso % (Auto) 0.5 Neut # (Auto) 5.1 Lymph # (Auto) 1.8 [place] # (Auto) 0.7 Eos # (Auto) 0.1 Baso # (Auto) 0.0 WBC Differential . Differential Comment Auto diff final PT INR APTT Sodium 144 Potassium 4.0 Chloride 110 H Carbon Dioxide 24.9 Anion Gap 9 BUN 13 Creatinine 0.79 Estimated GFR 69 L Random Glucose 74 Calcium 8.4 L Magnesium 1.9 Total Bilirubin 0.5 AST 26 ALT 16 Alkaline Phosphatase 74 Total Creatine Kinase Troponin I Less than 0.02 L Less than 0.02 L Total Protein 6.6 Albumin 3.0 L Lipase 141 TSH 0.012 L Free T4 1.53 H 03/01/18 03/01/18 03/01/18 16:11 16:20 22:34 WBC RBC Hgb Hct MCV MCH MCHC RDW Plt Count MPV Neut % (Auto) Lymph % (Auto) [place] % (Auto) Eos % (Auto) Baso % (Auto) Neut # (Auto) Lymph # (Auto) [place] # (Auto) Eos # (Auto) Baso # (Auto) WBC Differential Differential Comment PT 10.6 INR 1.0 APTT 22.6 L Sodium Potassium Chloride Carbon Dioxide Anion Gap BUN Creatinine Estimated GFR Random Glucose Calcium Magnesium Total Bilirubin AST ALT Alkaline Phosphatase Total Creatine Kinase 51 Troponin I Less than 0.02 L Total Protein Albumin Lipase TSH Free T4 Cancelled 03/02/18 06:05 WBC RBC Hgb Hct MCV MCH MCHC RDW Plt Count MPV Neut % (Auto) Lymph % (Auto) [place] % (Auto) Eos % (Auto) Baso % (Auto) Neut # (Auto) Lymph # (Auto) [place] # (Auto) Eos # (Auto) Baso # (Auto) WBC Differential Differential Comment PT INR APTT Sodium Potassium Chloride Carbon Dioxide Anion Gap BUN Creatinine Estimated GFR Random Glucose Calcium Magnesium Total Bilirubin AST ALT Alkaline Phosphatase Total Creatine Kinase 126 Troponin I Less than 0.02 L Total Protein Albumin Lipase TSH Free T4 - Imaging Impressions Abdomen/Pelvis CT 03/01/18 15:35 CONCLUSION: 1. No acute abnormality to explain the patient's pain. 2. 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 3. Diverticulosis of the duodenum and sigmoid colon without acute abnormality. 4. Long-term stable 2.9 cm left adnexal cystic lesion. Likely ovarian in origin. Chest X-Ray 03/01/18 15:35 CONCLUSION: 2 nodular areas of parenchymal consolidation involving the right lung. Consider CT the thorax to further assess. At this point infiltrates versus mass. Chest CT 03/01/18 16:28 CONCLUSION: 1. Distal airway disease and clustered nodularity in the right upper lobe posteriorly, probably chronic inflammatory changes. A focal area of atypical mycobacterial disease could give this appearance. There is also some nodularity and subsegmental airspace disease in the right middle lobe. 2. No effusions or adenopathy. 3. Moderate coronary calcifications. Assessment and Plan - Assessment (1) Atrial fibrillation, new onset Code(s): I48.91 - Unspecified atrial fibrillation Status: Acute Plan: Atrial fibrillation, new onset - Pt is an 82 y/o female with HTN, hypothyroidism, and hyperlipidemia who [place] [facility] [place] with complaints of abdominal cramping, loose stools and generalized weakness. - She was found to have new onset atrial fibrillation, rate controlled - Cardiology was consulted at admission. - Her Atenolol was changed to Metoprolol 25 mg for rate control - Her Chadsvasc score was 4 for age, hypertension, gender, and patient was started on Eliquis at admission. - Echocardiogram ordered. - The pt seems to have some degree of memory deficits and per the nursing staff they have been in contact with several of the pts family members and per the pts daughter, the pts son Henry is the POA and is in charge of the pts medical care. POA paperwork is being faxed to the floor per the nursing staff. - Will need to discuss with the pts son, Henry, about the Eliquis regarding the risks and benefits of this and if the pt sounds like a good candidate to continue this at home. - PT evaluation today to determine pts physical stability prior to discharge and help us determine needs for discharge. - Her TSH was noted to be suppressed and her levothyroxine was decreased, but doubt significant contribution. - Her electrolytes were ok. - Serial CE were negative. HTN (hypertension) - Atenolol changed to Metoprolol to help with rate control. - Monitor Hypothyroidism - Labs at admission with TSH 0.012 and Free T4 1.53 - Home dose of levothyroxine decreased to 50mcg from 75mcg - This will need to be rechecked as an outpt Hyperlipidemia - Continue home med Abnormal Imaging study of the chest - In the ED pt had a Contrasted Chest CT (03/01/18) --> Distal airway disease and clustered nodularity in the right upper lobe posteriorly, probably chronic inflammatory changes. A focal area of atypical mycobacterial disease could give this appearance. There is also some nodularity and subsegmental airspace disease in the right middle lobe. - This will need to be followed up on by the pts PCP, Dr. Arreola. Memory Deficits - Pt appears to have some memory deficits and is taking Aricept as an outpt. The exam, history, and the medical decision-making described in the above note were completed with the assistance of the mid-level provider. I reviewed and agree with the findings presented. I attest that I had a [id number] encounter with the patient on the same day, and personally performed and documented my assessment and findings in the medical record. pt with afib..cardiology wants bb and eliquis. some dementia. we are trying to figure out the social dynamic and who would be monitoring this pt and meds....especially the eliquis. We awaiting a phone number to call Henry her POA son. pt is demanding dc home immediately. addendum: Pt ended up leaving AMA on in the evening as she did not want to stay to be evaluated by PT for further recommendations and to determine if she could be safely discharged on Eliquis. Per the pts nurse, the pts son, Henry, picked the pt up as they did not want to wait for PT evaluation. Pt was not given a prescription for Eliquis as we were not able to get a PT evaluation performed. (2) HTN (hypertension) Code(s): I10 - Essential (primary) hypertension Status: Chronic (3) Hypothyroidism Code(s): E03.9 - Hypothyroidism, unspecified Status: Chronic (4) Hyperlipidemia Code(s): E78.5 - Hyperlipidemia, unspecified Status: Chronic (2) HTN (hypertension) Qualifiers: Hypertension type: essential hypertension Qualified Code(s): I10 - Essential (primary) hypertension
[2018-03-02] MEDS ORDERED: Metoprolol Tartrate 25 MG Tablet PO SCH (09:00)
[2018-03-02] MEDS ORDERED: Atenolol 25 MG Tablet PO SCH (09:00)
[2018-03-02 12:40] VITALS: BP 116/58; PULSE 77; RESP 16; TEMP 97.9; O2SAT 91
--- NOTE | 2018-03-02 14:33 | ECHRPT ---
Indication: A FIB FLUTTER CONCLUSIONS Normal left ventricular size. Mild concentric left ventricular hypertrophy. The left ventricular systolic function is normal with an estimated ejection fraction in the range of 60-65%. Mitral annular calcification is present. Trace mitral valve regurgitation. Aortic valve sclerosis is present. BP: / HR: Rhythm: MEASUREMENTS (Male / Female) Normal Values Technical Quality: 2D ECHO LV Diastolic Diameter PLAX 3.5 cm 4.2 - 5.9 / 3.9 - 5.3 cm LV Systolic Diameter PLAX 2.5 cm IVS Diastolic Thickness 0.9 cm 0.6 - 1.0 / 0.6 - 0.9 cm LVPW Diastolic Thickness 0.5 cm 0.6 - 1.0 / 0.6 - 0.9 cm LV Relative Wall Thickness 0.4 RV Internal Dim ED PLAX 1.4 cm LA Systolic Diameter LX 3.2 cm 3.0 - 4.0 / 2.7 - 3.8 cm M-MODE Aortic Root Diameter MM 2.9 cm AV Cusp Separation MM 1.6 cm DOPPLER Mitral E Point Velocity 53.3 cm/s Mitral A Point Velocity 104.0 cm/s Mitral E to A Ratio 0.5 TR Peak Velocity 242.0 cm/s TR Peak Gradient 23.4 mmHg FINDINGS LEFT VENTRICLE Normal left ventricular size. Mild concentric left ventricular hypertrophy. The left ventricular systolic function is normal with an estimated ejection fraction in the range of 60-65%. RIGHT VENTRICLE Normal right ventricular size and systolic function. LEFT ATRIUM The left atrial size is normal. RIGHT ATRIUM The right atrial size is normal. ATRIAL SEPTUM Normal atrial septal thickness without atrial level shunting by limited color doppler interrogation. AORTA The aortic root and proximal ascending aorta are normal in size on limited imaging. MITRAL VALVE Mitral annular calcification is present. Trace mitral valve regurgitation. AORTIC VALVE Aortic valve sclerosis is present. TRICUSPID VALVE Structurally normal tricuspid valve. No tricuspid valve stenosis or regurgitation. PULMONARY VALVE The pulmonary valve is not well visualized. VESSELS The inferior vena cava is normal in size. PERICARDIUM No pericardial effusion. Robin Harman MD, FACC, [facility] [place] (Electronically Signed) Final Date:02 March 2018 14:32
--- NOTE | 2018-03-02 14:52 | P.DCO ---
- Home Health Nursing Order: Medical education, Signs/symptoms of disease process, Nursing assessment with vital signs - [employer] Order: To evaluate: Living conditions/environment, Support services Order: To provide: Long range planning, Community services - Certification I have seen patient Angeline Ruff on 03/02/18. My clinical findings support the need for the requested home health care services because: Impaired cognition/judgement I certify that my clinical findings support that this patient is homebound because: Impaired cognitive ability/safety
[2018-03-02] MEDS: LORazepam 0.5 MG Tablet PO PRN (15:22)
--- NOTE | 2018-03-02 22:37 | ECG ---
Date Performed: 03/01/2018 Time Performed: 16:13:36 PTAGE: 82 years EKG: Sinus rhythm NONSPECIFIC T-WAVE ABNORMALITY ABNORMAL RHYTHM ECG PREVIOUS TRACING : 05/14/2014 18.50 Since the previous tracing, no significant change noted DOCTOR: Melo Hanna Interpretating Date/Time 03/02/2018 22:33:27
== END 2018-03-02 18:37 | disposition left against medical advice (07) ==
LOC: NEPGCP 15:07 → NEPE 15:07 → NEDA 15:07 → NEPGCP 20:41
PROVIDERS: ADMIT Hospitalist; ATTEND Hospitalist
DX: E78.00 Pure hypercholesterolemia, unspecified; K57.10 Diverticulosis of small intestine without perforation or abscess without bleeding; E03.9 Hypothyroidism, unspecified; C50.919 Malignant neoplasm of unspecified site of unspecified female breast; Z79.899 Other long term (current) drug therapy; E78.5 Hyperlipidemia, unspecified; I12.9 Hypertensive chronic kidney disease with stage 1 through stage 4 chronic kidney disease, or unspecified chronic kidney disease; N18.3 Chronic kidney disease, stage 3 (moderate); Z85.3 Personal history of malignant neoplasm of breast; I48.91 Unspecified atrial fibrillation; Z79.82 Long term (current) use of aspirin; Z87.891 Personal history of nicotine dependence; F03.90 Unspecified dementia, unspecified severity, without behavioral disturbance, psychotic disturbance, mood disturbance, and anxiety